=== PATIENT | male | born 1935 | race Hispanic/Latino ===

== ENCOUNTER 2018-01-26 11:07 | Emergency (ER) | payer MEDICARE ==
[2018-01-26 11:13] VITALS: BMI 25.8
[2018-01-26] MEDS ORDERED: Benzoin Compund Tincture 30 ML TP ONE (11:29)
[2018-01-26] MEDS ORDERED: Amiodarone 150mg/3 ml vial ONE (11:31)
[2018-01-26] MEDS ORDERED: Amiodarone 450 MG in Sodium Chloride 0.9% 250 ML IVPB SCH (11:48)
[2018-01-26 12:06] LABS: VENOUS BLOOD GAS BASE EXCESS -3.6 mmol/L (0.0-2.0); VENOUS BLOOD GAS PCO2 45 mmHg (40-60); VENOUS BLOOD GAS PO2 40 mm/Hg (30-55); VENOUS BLOOD PH 7.31 (7.32-7.43)
[2018-01-26 12:08] LABS: BASO % 0.3 % (0.0-2.0); EOS # 0.1 K/uL (0.0-0.7); EOS % 1.7 % (0.0-4.0); HEMOGLOBIN 12.1 g/dL (12.0-18.0); LYMPH # 1.8 K/uL (1.0-4.3); LYMPH % 26.4 % (20.0-40.0); MEAN CELL VOLUME 100.5 fl (80.0-94.0); MEAN CORPUSCULAR HEMOGLOBIN 33.3 pg (27.0-31.0); MEAN CORPUSCULAR HGB CONC 33.1 g/dL (33.0-37.0); MEAN PLATELET VOLUME 8.2 fl (7.2-11.7); MONO # 0.6 K/uL (0.0-0.8); MONO % 8.7 % (0.0-10.0); NEUT # 4.3 K/uL (1.8-7.0); NEUT % 62.9 % (50.0-75.0); NRBC % 0.1 % (0.0-0.0); RBC 3.64 Mil/uL (4.40-5.90); RED CELL DISTRIBUTION WIDTH 13.7 % (11.5-14.5); WHITE BLOOD COUNT 6.8 K/uL (4.8-10.8)
[2018-01-26] MEDS: Sodium Chloride 0.9% 1,000 ML IV SCH ×2 (12:14→12:50)
[2018-01-26 12:16] LABS: BLOOD UREA NITROGEN 19 mg/dl (9-20); GFR AFRICAN-AMERICAN > 60; GFR NON-AFRICAN AMERICAN > 60
[2018-01-26 12:17] LABS: ALB/GLOB RATIO 1.1 (1.0-2.1); ALBUMIN 3.9 g/dL (3.5-5.0); ALT/SGPT 36 U/L (21-72); AST/SGOT 33 U/L (17-59); CALCIUM 8.8 mg/dL (8.4-10.2)
[2018-01-26 12:20] LABS: PARTIAL THROMBOPLASTIN TIME 31.6 Seconds (25.6-37.1); PROTHROMBIN TIME 11.6 Seconds (9.8-13.1)
--- NOTE | 2018-01-26 12:42 | ED PDOC ---
HPI: SOB/CHF/COPD Time Seen by Provider: 01/26/18 11:41 Chief Complaint (Nursing): Weakness/Neurological Deficit Chief Complaint (Provider): Shortness of breath History Per: Patient History/Exam Limitations: no limitations Onset/Duration Of Symptoms: Days, Sudden Onset Current Symptoms Are (Timing): Still Present Associated Symptoms: Sweating, Chest Pain (chest heaviness). denies: Fever, Chills, Other (vomiting, diarrhea) Additional Complaint(s): Niles Joseph is an 82 year old male, with a past medical history of HTN, CAD and stent placed in the , who was brought to the emergency department by EMS after noticed he was having shortness of breath, becoming less responsive and sweating more with complaints of chest heaviness prior to arrival. Upon arrival of ambulance, patient was evaluated and had an EKG done. They thought he was on A-Fib with a rapid ventricular response. ER received call from [facility]. Per , patient a catheter done in June that looked clean and coronary artery was patent. states he had no history of weakness for the past x2 weeks. denies any fever, chills, vomiting or diarrhea. spoke to wood preserving plant laborer, Dr. Zurita, who is going to take him to [place] for emergent cath. Dimensional Engineer: Dr. Zurita Past Medical History Reviewed: Historical Data, Nursing Documentation, Vital Signs Vital Signs: Last Vital Signs Temp 98 F 01/26/18 12:00 Pulse 71 01/26/18 12:49 Resp 16 01/26/18 12:49 BP 94/65 L 01/26/18 12:49 Pulse Ox 97 01/26/18 12:58 - Medical History PMH: CAD, HTN, Hypercholesterolemia - Surgical History Surgical History: Coronary Stent () Other surgeries: knee surgeries - Family History Family History: States: Unknown Family Hx - Social History Current smoker - smoking cessation education provided: No Alcohol: None Drugs: Denies - Allergies Allergies/Adverse Reactions: Allergies Allergy/AdvReac Type Severity Reaction Status Date / Time No Known Allergies Allergy Verified 01/26/18 12:02 Review of Systems ROS Statement: Except As Marked, All Systems Reviewed And Found Negative Constitutional: Positive for: Sweats. Negative for: Fever, Chills Cardiovascular: Positive for: Chest Pain (chest heaviness) Respiratory: Positive for: Shortness of Breath Gastrointestinal: Negative for: Vomiting, Diarrhea Physical Exam - Reviewed Nursing Documentation Reviewed: Yes Vital Signs Reviewed: Yes - Physical Exam Appears: Positive for: In Acute Distress (moderate) Head Exam: Positive for: ATRAUMATIC, NORMOCEPHALIC Skin: Positive for: Normal Color, Warm, Dry Eye Exam: Positive for: Normal appearance, EOMI, PERRL Neck: Positive for: Painless ROM, Supple Cardiovascular/Chest: Positive for: Regular Rate, Rhythm (after cardioversion). Negative for: Murmur Respiratory: Positive for: Normal Breath Sounds (clear to auscultation). Negative for: Respiratory Distress Gastrointestinal/Abdominal: Positive for: Normal Exam, Soft. Negative for: Tenderness, Other (edema) Back: Positive for: Normal Inspection. Negative for: L CVA Tenderness, R CVA Tenderness, Vertebral Tenderness Extremity: Positive for: Normal ROM (upper and lower extremities). Negative for : Pedal Edema, Calf Tenderness, Deformity, Swelling Neurologic/Psych: Positive for: Alert (decreased mentation but responsive to stimulus) - Laboratory Results Result Diagrams: 01/26/18 12:00 01/26/18 12:00 - ECG O2 Sat by Pulse Oximetry: 97 (RA) Pulse Ox Interpretation: Normal - Radiology X-Ray: Viewed By Az X-Ray Interpretation: No Acute Disease - Progress Re-evaluation Time: 13:02 Condition: Re-examined, Improved - Critical Care Total Time (In Min): 60 Medical Decision Making Medical Decision Making: Time: 11:41 Initial Impression: ventricular tachycardia, acute coronary syndrome Initial Plan: --VBG --EKG --CMP --Troponin I --Echo comp w/ M mode/c Flow/DOP --CBC w/ differential --PTT --PT --Chest portable [RAD] --Amiodarone Bolus 100 ml IVPB once --Cordarone IV Drip --Sodium Chloride 1,000 ml IV 1,000 mls/hr 11:25 --Upon arrival, EKG done in ER shows he was on rapid consistent with ventricular tachycardia at a rate of 215bpm, hypotensive with blood pressure in the 80/60s. --After pads and lines, cardioventing him twice at 200 joules each time. First time no success, 2nd time preceded by 150 ml Amiodarone after that cardioventing successfull at rate of 78bpm, blood pressure is still ow but has good pulse. Will continue to monitor 12:05 -Spoke to Dr. Zurita who wants to transfer to [place] for emergent cath. Transfer initiated by patient's doctor 12:46 CXR FINDINGS: LUNGS: Bilateral patchy coalescent airspace opacity mid and lower lung zones noted side greater than right. Left pleural-based opacities and/or contiguous left pleural reaction possible. PLEURA: No significant pleural effusion identified -trace fluid in the right minor fissure probable, no pneumothorax apparent. CARDIOVASCULAR: Possible mild cardiomegaly (versus projection) apparent overlying defibrillating device is in place. OSSEOUS STRUCTURES: No significant abnormalities. VISUALIZED UPPER ABDOMEN: Normal. OTHER FINDINGS: None. IMPRESSION: Bilateral coalescent airspace opacities -coalescent areas of pulmonary edema and mild cardiomegaly are compatible with this. Additional concomitant underlying infiltrates or other pleural parenchymal pathology not excluded. History is that of V-tach clinical follow-up recommended Scribe Attestation: Documented by Roberto Thompson acting as a scribe for Rabia Lambert MD. Scribe Attestation: All medical record entries made by the Scribe were at my direction and personally dictated by me. I have reviewed the chart and agree that the record accurately reflects my personal performance of the history, physical exam, medical decision making, and the department course for this patient. I have also personally directed, reviewed, and agree with the discharge instructions and disposition. Disposition - Clinical Impression Clinical Impression: Ventricular tachycardia, ACS (acute coronary syndrome) - Patient ED Disposition Is Patient to be Admitted: Transfer of Care - Disposition Disposition: Other Institution Disposition Time: 13:03 Condition: GUARDED Forms: [facility] (U[place]bek) - POA Present On Arrival: None
--- NOTE | 2018-01-26 12:47 | RAD ---
HISTORY: vtach COMPARISON: No prior. FINDINGS: LUNGS: Bilateral patchy coalescent airspace opacity mid and lower lung zones noted side greater than right. Left pleural-based opacities and/or contiguous left pleural reaction possible. PLEURA: No significant pleural effusion identified -trace fluid in the right minor fissure probable, no pneumothorax apparent. CARDIOVASCULAR: Possible mild cardiomegaly (versus projection) apparent overlying defibrillating device is in place. OSSEOUS STRUCTURES: No significant abnormalities. VISUALIZED UPPER ABDOMEN: Normal. OTHER FINDINGS: None. IMPRESSION: Bilateral coalescent airspace opacities -coalescent areas of pulmonary edema and mild cardiomegaly are compatible with this. Additional concomitant underlying infiltrates or other pleural parenchymal pathology not excluded. History is that of V-tach clinical follow-up recommended
[2018-01-26] MEDS ORDERED: Sodium Chloride 0.9% 1,000 ML IV STA (13:16)
[2018-01-26 13:26] VITALS: O2SAT 98
[2018-01-26 13:49] VITALS: RESP 16
[2018-01-26 14:04] VITALS: BP 113/64
[2018-01-26 14:15] VITALS: PULSE 81; TEMP 98
--- NOTE | 2018-01-26 15:54 | CARD ---
APPROVED REPORT EKG Measurement Heart [id number] <Conclusion> Sinus rhythm with frequent premature ventricular complexes and premature atrial complexes Left axis deviation Nonspecific ST abnormality Abnormal ECG
--- NOTE | 2018-01-26 15:55 | CARD ---
APPROVED REPORT EKG Measurement Heart [id number] <Conclusion> Wide QRS tachycardia Left axis deviation Left ventricular hypertrophy with QRS widening and repolarization abnormality Possible Lateral infarct, age undetermined Inferior infarct, age undetermined Abnormal ECG
== END 2018-01-26 14:25 | disposition short-term general hospital (02) ==
LOC: H.ER 11:07
DX: I47.2 Ventricular tachycardia (principal); I24.9 Acute ischemic heart disease, unspecified; I10 Essential (primary) hypertension; Z86.79 Personal history of other diseases of the circulatory system
CPT/HCPCS: 71045; 80053; 82803; 84484; 85025; 85610; 85730; 93005; 96361; 96374; 96375; 99285; J0282; J2060; J7030